=== PATIENT | female | born 1985 | race African-American/Black ===

== ENCOUNTER 2017-09-30 14:34 | Emergency (ER) | payer OTHER, SELFPAY ==
[2017-09-30] MEDS ORDERED: Fentanyl 100 MCG/2 ML VIAL ONE (15:57)
[2017-09-30] MEDS ORDERED: Ondansetron HCl/PF 4 MG/2 ML Vial ONE (15:58)
--- NOTE | 2017-09-30 16:00 | RAD ---
CHEST ONE VIEW 09/30/17 HISTORY: Pain. COMPARISON: None. FINDINGS: The lungs are without focal air space consolidation, pneumothorax or effusion. The cardiac silhouette and mediastinal contours are within normal limits. No acute osseous abnormality. IMPRESSION: No acute intrathoracic abnormality. POS: [facility]
[2017-09-30 16:07] LABS: #Basophils 0.1 thou/uL (0.0-0.2); #Eosinphils 0.3 thou/uL (0.0-0.7); #Monocytes 0.5 thou/uL (0.11-0.59); #Neutrophils 6.3 thou/uL (1.40-6.50); %Basophils 0.6 % (0.0-1.0); %Lymphocytes 21.8 % (21.0-51.0); %Monocytes 5.7 % (0.0-10.0); Hematocrit 39.8 % (36.0-47.0); Mean Platelet Volume 7.8 fL (7.4-10.4); Red Blood Cell (RBC) Count 4.58 mill/uL (4.20-5.40); White Blood Cell (WBC) Count 9.1 thou/uL (4.8-10.8)
[2017-09-30 16:20] LABS: Lactic Acid - Sepsis 1.3 mmol/L (0.5-2.2)
--- NOTE | 2017-09-30 16:27 | ULT ---
HISTORY: Bilateral upper abdominal pain. RIGHT UPPER QUADRANT ULTRASOUND: 09/30/17 Multiple longitudinal and transverse images of the right upper quadrant of the abdomen is obtained us ing a multihertz curvilinear transducer. Real time, color flow, and spectral waveform doppler analysi s used to evaluate the right upper quadrant. The liver is unremarkable with no evidence of hepatic parenchymal masses or lesions. No evidence of i ntrahepatic biliary dilatation is seen. Common bile duct is of normal size measuring 2.7 mm. The gall bladder demonstrates no significant evidence of gallbladder wall thickening. Some small echogenic foc i is seen within the gallbladder lumen compatible with small gallstones. No evidence of pericholecyst ic fluid is seen. The pancreas is suboptimally visualized due to overlying bowel gas. The right kidney is unremarkable measuring 9.5 cm from pole to pole. No evidence of hydronephrosis se en. A normal hepatopedal flow is seen in the portal system. IMPRESSION: Cholelithiasis. POS: [facility]
[2017-09-30 16:29] LABS: Troponin I Less than 0.010 ng/mL (< 0.028)
[2017-09-30 16:59] LABS: Bilirubin Negative (Negative); Blood, Urine Negative (Negative); Glucose, Urine (Dipstick) Negative (Negative); Ketone, Urine Negative (Negative); Nitrite Negative (Negative); Protein, Urine (Dipstick) Negative (Neg-Trace)
[2017-09-30 17:29] LABS: ALT (SGPT) 12 U/L (8-55); AST (SGOT) 23 U/L (5-34); Alkaline Phosphatase 88 U/L (40-150); Anion Gap 13 mmol/L (10-20); BUN (Urea Nitrogen) 12 mg/dL (7.0-18.7); Bilirubin, Total 0.5 mg/dL (0.2-1.2); Calc. Creatinine Clearance 0 mL/min (70-130); Calcium 9.5 mg/dL (7.8-10.44); Carbon Dioxide 25 mmol/L (22-29); Chloride 108 mmol/L (98-107); Estimated GFR-MDRD 78; Globulin 3.1 g/dL (2.4-3.5); Protein, Total 7.4 g/dL (6.0-8.3)
== END 2017-09-30 19:35 | disposition home or self-care (01) ==
LOC: ERS 14:34
DX: K80.20 Calculus of gallbladder without cholecystitis without obstruction (principal); J45.909 Unspecified asthma, uncomplicated
CPT/HCPCS: 71010; 76705; 80053; 81003; 82553; 83605; 83690; 84484; 85025; 85379; 93005; 96361; 96374; 96375; J2405; J3010

== ENCOUNTER 2017-11-29 12:57 | Emergency (ER) | payer SELFPAY ==
[2017-11-29] MEDS ORDERED: Ondansetron HCl/PF 4 MG/2 ML Vial ONE (13:46)
[2017-11-29 13:57] LABS: #Basophils 0.1 thou/uL (0.0-0.2); #Eosinphils 0.4 thou/uL (0.0-0.7); #Lymphocytes 2.3 thou/uL (1.20-3.40); #Monocytes 0.5 thou/uL (0.11-0.59); %Basophils 1.3 % (0.0-1.0); %Eosinophils 5.5 % (0.0-10.0); %Lymphocytes 31.1 % (21.0-51.0); %Monocytes 6.8 % (0.0-10.0); %Neutrophils 55.3 % (42.0-75.0); Hemoglobin 12.9 g/dL (12.0-16.0); Mean Corpuscular HGB CONC 33.3 g/dL (32.0-36.0); Mean Corpuscular Hemoglobin 29.2 pg (27.0-31.0); Mean Corpuscular Volume 87.7 fl (81.0-99.0); Mean Platelet Volume 7.8 fL (7.4-10.4); Platelet Count 265 thou/uL (130-400); RBC Distribution Width 12.6 % (11.5-14.5); Red Blood Cell (RBC) Count 4.41 mill/uL (4.20-5.40); White Blood Cell (WBC) Count 7.3 thou/uL (4.8-10.8)
[2017-11-29 13:57] LABS: Bilirubin Negative (Negative); Blood, Urine Negative (Negative); Clarity CLEAR (Clear); Glucose, Urine (Dipstick) Negative (Negative); Leukocyte Small (Negative); Nitrite Negative (Negative); Protein, Urine (Dipstick) Negative (Neg-Trace); Specific Gravity, Urine 1.017 (1.002-1.036); Urobilinogen 0.2 mg/dL (0.2-1.0); pH, Urine 5.5 (5.0-9.0)
[2017-11-29 14:04] LABS: Pregnancy Test - Urine (BHCG) Negative (Negative); Pregu Control Background? CLEAR/WHITE (CLR/WHITE); Pregu Control Bar Appear? YES (CONTROL BAR); Specific Gravity 1.017 (1.002-1.036)
[2017-11-29 14:16] LABS: Bacteria/HPF None Seen HPF (None Seen); Hyaline Casts/LPF 0-3 HYALINE CAST LPF (0-3 Hyaline); RBC/HPF 0-3 HPF (0-3); Squamous Epithelial 0-3 HPF (0-3); WBC/HPF 0-3 HPF (0-3)
[2017-11-29 14:20] LABS: ALT (SGPT) Less than 7 U/L (8-55); AST (SGOT) 14 U/L (5-34); Alkaline Phosphatase 76 U/L (40-150); Anion Gap 12 mmol/L (10-20); BUN (Urea Nitrogen) 11 mg/dL (7.0-18.7); Bilirubin, Total 0.3 mg/dL (0.2-1.2); Calc. Creatinine Clearance 0 mL/min (70-130); Calcium 8.7 mg/dL (7.8-10.44); Carbon Dioxide 22 mmol/L (22-29); Chloride 105 mmol/L (98-107); Estimated GFR-MDRD 86; Globulin 3.2 g/dL (2.4-3.5); Glucose 87 mg/dL (70-105); Lipase 53 U/L (8-78); Potassium 3.7 mmol/L (3.5-5.1); Protein, Total 7.2 g/dL (6.0-8.3); Sodium 135 mmol/L (136-145)
--- NOTE | 2017-11-29 15:04 | ULT ---
RIGHT UPPER QUADRANT ABDOMINAL ULTRASOUND: History: Right upper quadrant abdominal pain. Patient was diagnosed with cholelithiasis two months ag o. Technique: Multiplanar grayscale and color doppler images were obtained in a right upper quadrant abd ominal ultrasound. FINDINGS: The liver is normal in echogenicity without focal lesions or intrahepatic ductal dilatation. The gall bladder contains small shadowing stones without gallbladder wall thickening or pericholecystic fluid. The common bile duct is normal, measuring 3 mm. Visualized portions of the pancreas are unremarkable. The right kidney is normal in echogenicity with out focal lesion and measures 8.7 cm in length. IMPRESSION: Cholelithiasis without evidence of acute cholecystitis. POS: [facility]
== END 2017-11-29 15:36 | disposition home or self-care (01) ==
LOC: ERS 12:57
DX: K80.20 Calculus of gallbladder without cholecystitis without obstruction (principal); J45.909 Unspecified asthma, uncomplicated
CPT/HCPCS: 36415; 76705; 80053; 81003; 81015; 81025; 83690; 85025; 96374; 96375; J2270; J2405

== ENCOUNTER 2018-02-16 13:53 | Emergency (ER) | payer SELFPAY ==
--- NOTE | 2018-02-16 15:20 | RAD ---
2 VIEWS CHEST: Date: 02/16/18 HISTORY: Chest pain. Shortness of breath. COMPARISON: None. FINDINGS: Normal cardiac silhouette. Lungs and pleural spaces are clear. No pneumothorax or osseous abnormaliti es. IMPRESSION: No acute cardiopulmonary process. POS: [facility]
[2018-02-16] MEDS ORDERED: Albuterol Sulfate 2.5 mg/3 ml Neb ONE (15:26)
[2018-02-16 16:22] LABS: Bilirubin Negative (Negative); Blood, Urine Negative (Negative); Clarity CLOUDY (Clear); Glucose, Urine (Dipstick) Negative (Negative); Leukocyte Large (Negative); Nitrite Negative (Negative); Protein, Urine (Dipstick) Negative (Neg-Trace); Specific Gravity, Urine 1.025 (1.002-1.036)
[2018-02-16 16:24] LABS: Hyaline Casts/LPF 7-10 HYALINE CAST LPF (0-3 Hyaline); Pathc Cast-AUWi Flag 2.47 (0-2.49); WBC/HPF 21-50 HPF (0-3)
[2018-02-16 16:25] LABS: Pregnancy Test - Urine (BHCG) POSITIVE (Negative); Pregu Control Background? CLEAR/WHITE (CLR/WHITE); Pregu Control Bar Appear? YES (CONTROL BAR); Specific Gravity 1.025 (1.002-1.036)
[2018-02-16 16:32] LABS: Bacteria/HPF 3+ HPF (None Seen); RBC/HPF 0-3 HPF (0-3)
== END 2018-02-16 17:52 | disposition home or self-care (01) ==
LOC: ERS 13:53
DX: O99.89 Other specified diseases and conditions complicating pregnancy, childbirth and the puerperium (principal); R07.9 Chest pain, unspecified; O99.511 Diseases of the respiratory system complicating pregnancy, first trimester; J45.909 Unspecified asthma, uncomplicated; O99.351 Diseases of the nervous system complicating pregnancy, first trimester; G43.909 Migraine, unspecified, not intractable, without status migrainosus
CPT/HCPCS: 71046; 81003; 81015; 81025; 93005; 94640; J7611

== ENCOUNTER 2018-06-19 09:54 | Day surgery (SDC) | payer MEDICAID, OTHER ==
--- NOTE | 2018-06-19 11:13 | PDOC.LDHP ---
Labor and Delivery H&P Chief complaint: other (syncope) HPI: 33 y/o @ 22.0 WGA presents due to syncope. She reports that she was at school sitting in the desk and she started to feel hot all over. She took her pulse and it was 85. She then started feeling palpitations, lightheadedness and tried to lift her head up, but her eyes went black. She then laid her head on the desk. She remembers the teacher coming over , but doesn't remember anything else until she was in the ambulance. She reports some associated nausea, but no vomiting. She had no incontinence and no one reported seizure-like activity. She reports that her lightheadedness and nausea have resolved. She has had about 1-2 bottles of water today. She reports a history of frequent pre-syncopal episodes, and Dr. Monge referred her to a systems integration advisor last week, but she has not received a call from them to make an appt yet. She reports that these episodes are sometimes when sitting or lying down, not always when standing. She denies any ctx, LOF, and reports movement. Current gestational age (weeks): 22 (22w0d) Grav: 9 Para: 8 () OB History Details: stillbirth at 26 weeks, living child at 32 weeks. Otherwise all term 's. Current complications: none Abnormal US findings: No Past Medical History: Asthma, but has not required treatment in the past 12 years Current medications: pre-keeley vitamins Previous surgical history: none Allergies/Adverse Reactions: Allergies Allergy/AdvReac Type Severity Reaction Status Date / Time cefaclor [From [facility]] Allergy Verified 06/19/18 10:34 Social history: none - Physical Exam Abnormal vital signs: BP 95/50 General: NAD, resting Heart: RRR Lungs: CTAB Abdomen: gravid Extremeties: no edema FHT: category 1, variability present [place] contractions every: none - OB Labs Blood type: unknown RH: unknown Antibody Screen: unknown HIV: unknown RPR: unknown HEPSAg: unknown - Assessment Syncope: 33 y/o F presents due to a syncopal episode. She has had frequent episodes of pre-syncope and was referred to cardiology last week. - Plan -: -EKG -Orally hydrate -Orthostatic vital signs -Check TSH and BMP -Will have pt make an appt with systems integration advisor that she was referred to. If all of this returns normal, will d/c with cardiology f/u.
[2018-06-19 11:30] VITALS: BP 90/53; TEMP 98.9
--- NOTE | 2018-06-19 11:49 | PDOC.EVN ---
Event Note - Event Note Event Note: Orthostatic vital signs reviewed and were negative for orthostatic hypotension. EKG reviewed, showed NSR with sinus arrhythmia, rate of 72 BPM. Labs still pending at this time. Pt is orally hydrating.
[2018-06-19 11:53] LABS: Anion Gap 12 mmol/L (10-20); BUN (Urea Nitrogen) 6 mg/dL (7.0-18.7); Calc. Creatinine Clearance 0 mL/min (70-130); Calcium 8.7 mg/dL (7.8-10.44); Carbon Dioxide 20 mmol/L (22-29); Chloride 104 mmol/L (98-107); Estimated GFR-MDRD Greater than 90; Glucose 89 mg/dL (70-105); Potassium 3.4 mmol/L (3.5-5.1); Sodium 133 mmol/L (136-145)
--- NOTE | 2018-06-19 12:16 | PDOC.EVN ---
Event Note - Event Note Event Note: TSH came back low at 0.013. Added on a free T4. K 3.4, which is mildly hypokalemic and Na 133.
--- NOTE | 2018-06-19 13:36 | PDOC.EVN ---
Event Note - Event Note Event Note: Free T4 came back WNL. 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 Monge
--- NOTE | 2018-06-20 17:42 | EKG ---
Test Reason : Blood Pressure : / mmHG Vent. Rate : 072 BPM Atrial Rate : 072 BPM P-R Int : 130 ms QRS Dur : 082 ms QT Int : 402 ms P-R-T Axes : 038 078 039 degrees QTc Int : 440 ms Normal sinus rhythm with sinus arrhythmia Normal ECG When compared with ECG of 16-FEB-2018 15:00, No significant change was found Confirmed by DR. Kiley DRAKE ([id number]) on 06/20/2018 5:42:02 PM Referred By: BRYSON Confirmed By:DR. Kiley DRAKE
== END 2018-06-19 13:54 | disposition home or self-care (01) ==
LOC: L&D/OP 09:54
PROVIDERS: ATTEND Family Medicine
DX: O99.89 Other specified diseases and conditions complicating pregnancy, childbirth and the puerperium (principal); R55 Syncope and collapse; Z3A.22 22 weeks gestation of pregnancy; Z79.899 Other long term (current) drug therapy; Z88.1 Allergy status to other antibiotic agents
CPT/HCPCS: 36415; 80048; 84439; 84443; 93005; 93010; 99281

== ENCOUNTER 2018-07-22 22:09 | Day surgery (SDC) | payer OTHER ==
[2018-07-22 22:46] VITALS: BP 109/57; TEMP 99; BMI 27.6
--- NOTE | 2018-07-22 23:42 | PDOC.FPROB ---
FMR OB H&P: HPI - History of Present Illness Chief Complaint: Low back pain Indentification: 33 year old History of Present Illness: 33 year old at 27.1 wks by LMP/1T sono with JARROD of 10/20/2018 that presents with low back pain with onset this AM upon waking. Patient states it has been present all day, although it does wax and wane in intensity. She has tried tylenol and fluid hydration thinking this may be related to [place] contractions without any relief of symptoms. She states it is more of a dull pain. She is concerned about PTL due to past history of PTL. She denies any dysuria, flank pain, fever, chills, headaches, vaginal bleeding, vaginal discharge, or LoF. She endorses good movement. Primary Care Physician: Saleem FMR OB H&P: Current - Care : 10 Para: [id number] Gestational age: 27.1 wks Due date: 10/20/2017 Dating Criteria: LMP/1T sono FMR OB H&P: History - Past Medical History PMH: Asthma Migraine SKELTON's - OB History OB History: History of still at 25 wks (presented with PPROM) History of PTD at 25 wks (presented with contractions) - Surgical History Sx History: None - Social History Social History: Denies tobacco, alcohol, or drug use. FMR OB H&P: Medications - Current Home Medications: Medication Instructions Recorded Confirmed Type Pnv No.95/Ferrous Fum/Folic AC 1 tab PO DAILY 06/09/15 07/22/18 History [ Tablet] Acetaminophen W/ Codeine 1 tab PO Q4H PRN #0 tab 08/12/15 07/22/18 Rx [Acetaminophen/Codeine #3] Allergies/Adverse Reactions: Allergies Allergy/AdvReac Type Severity Reaction Status Date / Time cefaclor [From [facility]] Allergy Verified 07/22/18 22:38 FMR OB H&P: ROS - Review of Systems General: denies: fever/chills, weight/appetite/sleep changes, fatigue Eyes: denies: vision changes ENT: denies: nasal congestion, rhinorrhea, sore throat Cardiovascular: denies: chest pain, palpitation, edema Respiratory: denies: cough, congestion, shortness of breath Gastrointestinal: reports: abdominal pain. denies: nausea, vomiting, diarrhea Genitourinary (Female): reports: polyuria, contractions. denies: dysuria, hematuria, vaginal discharge, vaginal pain, vaginal bleeding Musculoskeletal: denies: pain Neurologic: denies: seizures, weakness Integumentary: denies: itching, rash Hematologic/Lymphatic: denies: prolonged or excessive bleeding Psychological: denies: depression, anxiety FMR OB H&P: Vital Signs - Maternal Vital signs: Vital Signs - First Documented Temp Pulse Resp BP 99.0 F 84 18 109/57 L 07/22/18 22:36 07/22/18 22:36 07/22/18 22:36 07/22/18 22:36 - Heart Tones Baseline: 130 Variability: moderate Acceleration: present Deceleration: absent Category: category 1 [place] contractions every: Irritability FMR OB H&P: Physical Exam - Physical Exam General: NAD, awake, alert and oriented HEENT: normocephalic and atraumatic, MMM, grossly normal hearing, normal nasal mucosa Heart: RRR, no murmurs/rubs/gallops General: no respiratory distress Abdomen: soft, gravid, non-tender Musculoskeletal: pulses present Neurological: no focal deficit Skin: no rash, capillary refill <2 seconds Lymphatic: no unusual bruising or bleeding Psychiatric: intact recent and remote memory, good judgement and insight, normal mood and affect - Pelvic Exam Vulva: no masses, no lesions, no discharge, no blood SVE: closed/thick/high FMR OB H&P: A/P - Problem List (1) Back pain affecting Status: Acute Code(s): O99.89 - OTH DISEASES AND CONDITIONS COMPL PREG/ CHLDBRTH; M54.9 - DORSALGIA, UNSPECIFIED Qualifiers: Trimester: second trimester Qualified Code(s): O99.89 - Other specified diseases and conditions complicating , childbirth and the puerperium; M54.9 - Dorsalgia, unspecified (2) Status: Acute Qualifiers: Weeks of gestation: 27 weeks Qualified Code(s): Z3A.27 - 27 weeks gestation of Assessment and Plan: 33 year old at 27.1 wks by LMP/1T sono presents with low back pain 1. Low back pain - Likely related to [place] contractions vs. muscle strain - UA negative - Tylenol PRN; 1000 mg given prior to d/c - Encouraged PO hydration - Cervical check: closed/thick/high - PTL precautions given prior to d/c - Pt advised to follow with Dr. Monge on Tuesday as scheduled 2. sIUP - see plan as above Discussion: Date/Time: 07/22/18 5321 This H&P was discussed with Dr. Ramsey who agrees with the above documentation and plan. Signature: Sharifa Batista DO PGY-2 Attending Addendum - Attending Addendum Date/Time: 07/23/18 0033 I personally evaluated the patient and discussed the management with Dr. Kong. I agree with the History, Examination, Assessment and Plan documented above.
[2018-07-23 00:06] LABS: Bilirubin Negative (Negative); Blood, Urine Negative (Negative); Clarity CLEAR (Clear); Glucose, Urine (Dipstick) Negative (Negative); Leukocyte Negative (Negative); Nitrite Negative (Negative); Protein, Urine (Dipstick) Negative (Neg-Trace); Specific Gravity, Urine 1.025 (1.002-1.036)
[2018-07-23] MEDS ORDERED: Acetaminophen 500 MG TAB PO SCH (00:30)
== END 2018-07-23 00:29 | disposition home or self-care (01) ==
LOC: L&D/OP 22:09
PROVIDERS: ATTEND Family Medicine
DX: O99.89 Other specified diseases and conditions complicating pregnancy, childbirth and the puerperium (principal); M54.5 Low back pain; Z3A.27 27 weeks gestation of pregnancy; Z88.8 Allergy status to other drugs, medicaments and biological substances
CPT/HCPCS: 81003; 99283

== ENCOUNTER 2018-07-25 10:40 | Outpatient (CLI) | payer OTHER ==
--- NOTE | 2018-07-25 12:47 | ULT ---
OB ULTRASOUND: INDICATIONS: Evaluation of size and dates. FINDINGS: There is a live intrauterine gestation with cardiac activity, documented at 129 beats per minut e. The placenta is located anteriorly, and the fetus is in a vertex lie. No evidence of placenta pr evia. Evaluation of anatomy reveals a normal sonographic appearance of the cranium, spin e, four chamber heart, gastric bubble, kidneys, cord insertion site, and urinary bladder. Amniotic f luid volume is subjectively diminished in volume with a low JANE, also measured at 9.4 cm. Provided c linical gestational age is 27 weeks 3 days, and on the basis of sonographic imaging, the estimated fe carlo age is 27 weeks 0 days. Estimated weight is 1057 g. Biparietal diameter corresponds to 26 weeks 0 days, head circumference, 26 weeks 5 days, abdominal ci rcumference 27 weeks 3 days, and femoral length 27 weeks 5 days. On the basis of sonographic imaging, the estimated date of delivery is 10/24/2018. IMPRESSION: 1. Single live intrauterine gestation, as above. 2. There is a subjectively diminished volume of amniotic fluid and, as well, there is a correlative reduced value of the amniotic fluid index of 9.4 cm. Recommend clinical correlation in this regard. Imaging followup may also prove useful for continued assessment. Findings called to Dr. Monge at 1140 hours, 07/25/18. POS: [facility]
== END 2018-07-25 10:41 | disposition home or self-care (01) ==
LOC: BICULT 10:40
PROVIDERS: ATTEND Family Medicine
DX: O09.212 Supervision of pregnancy with history of pre-term labor, second trimester (principal)
CPT/HCPCS: 76805

== ENCOUNTER 2018-09-05 22:57 | Inpatient (IN) | payer OTHER ==
[2018-09-05 23:58] VITALS: BMI 27.9
[2018-09-06 00:32] LABS: Bilirubin Negative (Negative); Blood, Urine Negative (Negative); Clarity CLEAR (Clear); Glucose, Urine (Dipstick) Negative (Negative); Leukocyte Negative (Negative); Nitrite Negative (Negative); Protein, Urine (Dipstick) Negative (Neg-Trace); Specific Gravity, Urine 1.015 (1.002-1.036)
[2018-09-06 00:36] LABS: #Basophils 0.1 thou/uL (0.0-0.2); #Eosinphils 0.2 thou/uL (0.0-0.7); #Lymphocytes 2.1 thou/uL (1.20-3.40); #Monocytes 0.8 thou/uL (0.11-0.59); #Neutrophils 3.9 thou/uL (1.40-6.50); %Basophils 0.8 % (0.0-1.0); %Eosinophils 2.4 % (0.0-10.0); %Lymphocytes 30.4 % (21.0-51.0); %Monocytes 11.7 % (0.0-10.0); %Neutrophils 54.7 % (42.0-75.0); Hemoglobin 10.7 g/dL (12.0-16.0); Mean Corpuscular HGB CONC 35.1 g/dL (32.0-36.0); Mean Corpuscular Hemoglobin 29.2 pg (27.0-31.0); Mean Corpuscular Volume 83.3 fL (78.0-98.0); Mean Platelet Volume 8.2 fL (7.4-10.4); Platelet Count 162 thou/uL (130-400); RBC Distribution Width 13.5 % (11.5-14.5); Red Blood Cell (RBC) Count 3.67 mill/uL (4.20-5.40)
[2018-09-06] MEDS ORDERED: Butorphanol Tartrate 1 MG/ML VIAL SLOW IVP PRN (01:11)
[2018-09-06] MEDS ORDERED: Lactated Ringer's 500 ML IV SCH (01:30)
[2018-09-06] MEDS ORDERED: NIFEdipine 10 MG CAP PO SCH (01:30)
[2018-09-06] MEDS: Lactated Ringer's 1,000 ML IV SCH ×3 (01:35→12:21)
[2018-09-06] MEDS: Betamet Acet/Betamet Na Ph 30 MG/5 ML VIAL IM SCH (01:48)
[2018-09-06] MEDS: NIFEdipine 10 MG CAP PO SCH ×2 (10:13→21:57)
[2018-09-06] MEDS ORDERED: Ondansetron PF 4 MG/2 ML Vial IVP PRN (14:33)
[2018-09-06 21:48] VITALS: BP 92/46; TEMP 98.8
[2018-09-07] MEDS: Betamet Acet/Betamet Na Ph 30 MG/5 ML VIAL IM SCH (01:52)
[2018-09-07] MEDS: Lactated Ringer's 1,000 ML IV SCH (02:27)
[2018-09-07] MEDS: NIFEdipine 10 MG CAP PO SCH (10:12)
== END 2018-09-07 12:15 | disposition home health service (06) | DRG 833 ==
LOC: L&D/OP 22:57 → L&D 09-06 03:37
PROVIDERS: ADMIT Obstetrics & Gynecology; ATTEND Obstetrics & Gynecology
DX: O60.03 Preterm labor without delivery, third trimester (principal); Z3A.33 33 weeks gestation of pregnancy
CPT/HCPCS: 36415; 81003; 85025; 99285; J0595; J0702

== ENCOUNTER 2018-09-17 11:33 | Day surgery (SDC) | payer OTHER ==
[2018-09-17 12:03] VITALS: BMI 27.8
--- NOTE | 2018-09-18 02:09 | SS ---
DATE OF ADMISSION: 09/17/2018 DATE OF DISCHARGE: 09/17/2018 LABOR AND DELIVERY TRIAGE NOTE REGULAR PHYSICIAN: Pro Monge MD EVALUATING PHYSICIAN: David Ramsey MD CHIEF COMPLAINT: Brought in by ambulance. HISTORY OF PRESENT ILLNESS: Ms. Tinoco is a 33-year-old white G10, P8 with an estimated date of confinement of 10/21/2017, who presents to the hospital by ambulance reporting an episode of dizziness at home. She denies history of seizures. She also denies contractions, vaginal bleeding, or rupture of membranes. Her care had been with Dr. Monge here in [facility]. She reports that it was uncomplicated. PAST OBSTETRICAL HISTORY: Includes 8 vaginal deliveries at term and a stillborn also delivered vaginally at 25 weeks. PAST MEDICAL HISTORY: None. PAST SURGICAL HISTORY: None. CURRENT MEDICATIONS: vitamins. ALLERGIES: CECLOR WHICH GIVES HER HIVES. SOCIAL HISTORY: She denies tobacco, alcohol, or drug use. FAMILY HISTORY: Unremarkable. REVIEW OF SYSTEMS: Denies nausea, vomiting, fever, chills, rupture of membranes , or vaginal bleeding. PHYSICAL EXAMINATION: VITAL SIGNS: In triage, blood pressure is 95/51, pulse 97, she is afebrile. GENERAL: She is in no apparent distress. She is awake and oriented. ABDOMEN: Soft, nontender, and gravid. PELVIC: Deferred. heart tones are stable with a good [id number] variability, they are reassuring. No uterine contractions are seen. LABORATORY DATA: CBC, chem-21, and urinalysis were ordered. Unfortunately, she left against medical advice before these laboratories could be completed. ASSESSMENT: 1. 35-week intrauterine . 2. History of dizziness at home. 3. Left against medical advice prior to workup. PLAN: As the patient has signed the AMA form and states she will follow up with Dr. Monge at her next appointment. Job ID: [id number] MTDD
== END 2018-09-17 12:24 | disposition left against medical advice (07) ==
LOC: L&D/OP 11:33
DX: O99.89 Other specified diseases and conditions complicating pregnancy, childbirth and the puerperium (principal); R42 Dizziness and giddiness; Z53.21 Procedure and treatment not carried out due to patient leaving prior to being seen by health care provider; Z3A.35 35 weeks gestation of pregnancy; Z79.899 Other long term (current) drug therapy; Z88.1 Allergy status to other antibiotic agents
CPT/HCPCS: 96360; 99282

== ENCOUNTER 2018-09-21 08:00 | Day surgery (SDC) | payer OTHER ==
[2018-09-21 09:23] VITALS: BMI 26.2
--- NOTE | 2018-09-21 15:21 | PRG ---
DATE OF SERVICE: 09/21/2018 OB ER ENCOUNTER: PRIMARY CONCHE LOADER AND UNLOADER: Dr. Pro Monge. CHIEF COMPLAINT: Abdominal pain. HISTORY OF PRESENT ILLNESS: The patient is a 33-year-old G10, P8 female with an intrauterine at 35 weeks and 5 days, who is presenting to Labor and Delivery today with onset of uterine contractions. The patient reports that last night, they became more intense and persisted throughout the night and upon arriving here to Labor and Delivery, she does report that the contractions seem to be getting less intense and less frequent. The patient denies any recent illness, fever, fall, headache, chest pain, shortness of breath, nausea, vomiting, diarrhea, or constipation. She denies hip problems, knee problems, or muscle weakness. Denies vaginal bleeding or leakage of fluid. Denies urinary urgency. She denies any recent intercourse. The patient does report that she has received steroids at a prior admission for concerns of labor, which was given on 09/06/2018 and 09/07/2018. PAST MEDICAL HISTORY: Negative. PAST SURGICAL HISTORY: Negative. OBSTETRIC HISTORY: The patient has 8 vaginal deliveries at term and a stillborn, delivered at 28 and 5 weeks. CURRENT MEDICATIONS: Include vitamins. ALLERGIES: CECLOR, WHICH GIVES HER HIVES. SOCIAL HISTORY: Denies drug, alcohol, or tobacco use. OBSTETRIC LABORATORY DATA: OB labs are unavailable at the time of dictation. REVIEW OF SYSTEMS: Per HPI. The patient does report that she has persistent intermittent dizziness and lightheadedness, which has been an ongoing thing with this and is being evaluated by Dr. Monge. PHYSICAL EXAMINATION: VITAL SIGNS: Blood pressure 110/68, heart rate of 101, respiratory rate 18, and temperature 98.2. GENERAL: She appears to be in no acute distress. She is alert and oriented. Cooperative and pleasant to interact with. HEAD: Normocephalic and atraumatic. LUNGS: Clear to auscultation bilaterally. HEART: Regular rate and rhythm. ABDOMEN: Soft, gravid, nontender to palpation. EXTREMITIES: Nontender and nonedematous. : She has a cervical exam of 2 cm dilated, 20% effaced, -2 station, which is unchanged after 3 hours. heart tracing performed for abdominal pain and , baseline is noted to be in the 120s with moderate long-term variability, positive 15 x 15 accelerations. Tocometer shows contraction, irregular and infrequent being as much as 20 minutes apart. ASSESSMENT AND PLAN: The patient is a 33-year-old grand multiparous female with an intrauterine at 35 weeks and 5 days with contractions, but no evidence of labor. The patient is status post steroid administration a couple of weeks ago. She has been given labor precautions and been discharged home with instructions to follow up with her primary OB as scheduled. Fetus has a reactive NST and category 1 tracing. Job ID: [id number]
== END 2018-09-21 12:35 | disposition home or self-care (01) ==
LOC: L&D/OP 08:00
PROVIDERS: ATTEND Family Medicine
DX: O47.03 False labor before 37 completed weeks of gestation, third trimester (principal); Z3A.35 35 weeks gestation of pregnancy; Z79.899 Other long term (current) drug therapy; Z88.1 Allergy status to other antibiotic agents
CPT/HCPCS: 90471; 90686; 99283; G0008

== ENCOUNTER 2018-10-01 10:57 | Day surgery (SDC) | payer OTHER ==
[2018-10-01 11:33] VITALS: BMI 22.1
--- NOTE | 2018-10-01 12:14 | PDOC.FPROB ---
FMR OB H&P: HPI - History of Present Illness Chief Complaint: Contractions Indentification: 33 year old History of Present Illness: 33 year old at 37.1 wks presents with contractions since 19:00 last night. She states the contractions are every 3-4 minutes and rated as a 6/10. She denies LoF, vaginal bleeding, or vaginal discharge. Patient endorses good movement. 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: None - Surgical History Sx History: Denies - Social History Social History: Denies alcohol, drug, or tobacco use - Family History Family History: Insignificant FMR OB H&P: Medications - Current Home Medications: Medication Instructions Recorded Confirmed Type Pnv No.95/Ferrous Fum/Folic AC 1 tab PO DAILY 06/09/15 10/01/18 History [ Tablet] Allergies/Adverse Reactions: Allergies Allergy/AdvReac Type Severity Reaction Status Date / Time cefaclor [From [facility]] Allergy Intermediate Severe Verified 10/01/18 11:29 Hives FMR OB H&P: ROS - Review of Systems General: denies: fever/chills, weight/appetite/sleep changes Eyes: denies: double vision ENT: denies: nasal congestion, rhinorrhea, sore throat Cardiovascular: denies: chest pain, edema Respiratory: denies: cough, congestion, shortness of breath Gastrointestinal: denies: nausea, vomiting Genitourinary (Female): reports: polyuria, contractions, vaginal pressure. denies: dysuria, vaginal discharge, vaginal bleeding Musculoskeletal: denies: pain, stiffness Neurologic: denies: numbness, seizures Integumentary: denies: itching, rash Hematologic/Lymphatic: denies: prolonged or excessive bleeding Psychological: denies: depression, anxiety FMR OB H&P: Vital Signs - Maternal Vital signs: BP wnl Pulse wnl - Heart Tones Baseline: 130 Variability: moderate Acceleration: present Deceleration: absent Category: category 1 [place] contractions every: Irregular FMR OB H&P: Physical Exam - Physical Exam General: NAD, awake, alert and oriented HEENT: MMM, grossly normal vision, grossly normal hearing Neck: supple Heart: RRR, pulses present, no edema General: no respiratory distress, good air movement Abdomen: soft, gravid, non-tender Musculoskeletal: pulses present, FROM in all four extremities Neurological: no tremor, no focal deficit Skin: no rash, capillary refill <2 seconds Lymphatic: no unusual bruising or bleeding, no purpura Psychiatric: intact recent and remote memory, good judgement and insight, normal mood and affect - Pelvic Exam SVE: 3 at appx 12:00 FMR OB H&P: A/P - Problem List (1) Term Current Visit: Yes Status: Acute Code(s): Z34.80 - ENCOUNTER FOR SUPRVSN OF NORMAL , UNSP TRIMESTER (2) Grand multipara Current Visit: Yes Status: Acute Code(s): Z64.1 - PROBLEMS RELATED TO MULTIPARITY (3) Uterine contractions Current Visit: Yes Status: Acute Code(s): SZG4786 - (4) Asthma Current Visit: Yes Status: Acute Code(s): J45.909 - UNSPECIFIED ASTHMA, UNCOMPLICATED Disposition: 33 year old at 37.1 wks presents with contractions 1. TIUP - rule out labor - cervical check at 12:00 was 3 (unchanged from 09/21) - recheck in several hours; patient is G10, but she does only live 5 minutes away. - if no cervical change in next several hours, will d/c home with labor precautions - cat 1 strip 2. Asthma - well controlled 3. Grand multip - PPH precautions Dispo: Stable. D/c home if no cervical change in next several hours. If cervical change noted, will admit to L&D for expectant management. Discussion: Date/Time: 10/01/18 1151 This H&P was discussed with Dr. Peralta who agrees with the above documentation and plan. Signature: Sharifa Batista, DO PGY-2
== END 2018-10-01 14:43 | disposition home or self-care (01) ==
LOC: L&D/OP 10:57
PROVIDERS: ATTEND Family Medicine
DX: O47.1 False labor at or after 37 completed weeks of gestation (principal); O99.513 Diseases of the respiratory system complicating pregnancy, third trimester; J45.909 Unspecified asthma, uncomplicated; Z79.899 Other long term (current) drug therapy; Z88.1 Allergy status to other antibiotic agents; Z3A.37 37 weeks gestation of pregnancy
CPT/HCPCS: 99283

== ENCOUNTER 2018-10-06 22:15 | Inpatient (IN) | payer OTHER ==
[2018-10-06 22:56] VITALS: BMI 27.9
[2018-10-06] MEDS ORDERED: Butorphanol Tartrate 1 MG/ML VIAL IM SCH (23:45)
[2018-10-07] MEDS ORDERED: Fentanyl 4 mcg/Bup 0.1% Cadd 100 ML ONE (00:51)
[2018-10-07] MEDS ORDERED: Lidocaine 1.5%/Epinephrine 1:200,000 5 ML AMPUL IJ ONE (00:57)
[2018-10-07] MEDS ORDERED: Lidocaine 1% (PF) 30 ML VIAL ONE (01:10)
[2018-10-07] MEDS ORDERED: NS / Oxytocin 40 units/1000ml 1,000 ML ONE (01:10)
[2018-10-07 01:15] LABS: Hemoglobin 11.6 g/dL (12.0-16.0); Mean Corpuscular HGB CONC 34.1 g/dL (32.0-36.0); Mean Corpuscular Hemoglobin 27.7 pg (27.0-31.0); Mean Corpuscular Volume 81.1 fL (78.0-98.0); Mean Platelet Volume 8.4 fL (7.4-10.4); Platelet Count 164 thou/uL (130-400); RBC Distribution Width 13.6 % (11.5-14.5); White Blood Cell (WBC) Count 8.5 thou/uL (4.8-10.8)
[2018-10-07] MEDS ORDERED: Acetaminophen 500 MG TAB PO PRN (01:17)
[2018-10-07] MEDS ORDERED: Butorphanol Tartrate 1 MG/ML VIAL SLOW IVP PRN (01:17)
[2018-10-07] MEDS ORDERED: Lactated Ringer's 1,000 ML IV SCH (01:17)
[2018-10-07] MEDS ORDERED: Promethazine HCl 25 MG/ML VIAL IM PRN ×2 (01:17→01:48)
[2018-10-07] MEDS ORDERED: Ondansetron PF 4 MG/2 ML Vial IVP PRN ×3 (01:17→04:29)
[2018-10-07] MEDS ORDERED: Lidocaine 1% (PF) 30 ML VIAL SC PRN (01:30)
[2018-10-07] MEDS ORDERED: Ibuprofen 800 MG TAB PO PRN (01:30)
[2018-10-07] MEDS ORDERED: Methylergonovine 0.2 MG/ML VIAL IM PRN (01:30)
[2018-10-07] MEDS ORDERED: NS / Oxytocin 40 units/1000ml 1,000 ML IV SCH ×2 (01:30→04:29)
[2018-10-07] MEDS ORDERED: NS w/ Oxytocin 10 units 500 ML IV SCH ×2 (01:30)
[2018-10-07] MEDS ORDERED: Misoprostol 200 MCG TAB RC PRN (01:30)
[2018-10-07] MEDS ORDERED: HYDROcodone/Acetaminophen 5/325 mg Tablet PO PRN ×3 (01:30→04:29)
[2018-10-07] MEDS ORDERED: Carboprost 250 MCG/ML AMP IM PRN (01:30)
[2018-10-07] MEDS ORDERED: Diphenoxylate HCl/Atropine Tablet PO PRN ×2 (01:30)
[2018-10-07] MEDS ORDERED: Eucerin (Mineral Oil/Petrolatum,White) 30 gm Jar TOP PRN (01:48)
[2018-10-07] MEDS ORDERED: Lactated Ringer's 500 ML IV PRN (01:48)
[2018-10-07] MEDS ORDERED: ePHEDrine/0.9% NaCl/PF SYRINGE 50 mg/10 ml SLOW IVP PRN (01:48)
[2018-10-07] MEDS ORDERED: diphenhydrAMINE 50 MG/ML VIAL IVP PRN (01:48)
[2018-10-07] MEDS ORDERED: Acetaminophen 325 MG TAB PO PRN (01:48)
[2018-10-07] MEDS ORDERED: Naloxone HCl 0.4 mg/ml Vial IVP PRN ×2 (01:48)
[2018-10-07 01:50] LABS: Hep B Surf Ag Non-Reactive S/CO (NonReactive)
[2018-10-07] MEDS ORDERED: Communication Order-Pharmacy FS SCH (02:00)
[2018-10-07] MEDS ORDERED: Fentanyl 4 mcg/Bupivacaine 0.1% Cassette 100 ML EPIDURAL SCH (02:00)
[2018-10-07 03:56] LABS: Syphilis Antibody Nonreactive (Nonreactive); Syphilis Antibody Index 0.04 S/CO (<1.00 Non-Reactive)
[2018-10-07] MEDS ORDERED: Lanolin Ointment 7 GM TUBE TOP PRN (04:29)
[2018-10-07] MEDS ORDERED: Bisacodyl 10 MG SUPP PR PRN (04:29)
[2018-10-07] MEDS ORDERED: Milk Of Magnesia 30 ML UDCUP PO PRN (04:29)
[2018-10-07] MEDS ORDERED: diphenhydrAMINE 25 MG CAP PO PRN (04:29)
[2018-10-07] MEDS: Prenatal Vitamin 1 TAB PO SCH (08:24)
[2018-10-07] MEDS: Ibuprofen 800 MG TAB PO SCH ×3 (08:25→21:49)
[2018-10-07] MEDS: Docusate Calcium (SURFAK) 240 MG CAP PO SCH ×2 (08:25→21:49)
[2018-10-07] MEDS: Ferrous Sulfate 325 MG TAB PO SCH ×2 (08:26→17:07)
[2018-10-07] MEDS ORDERED: Bupivacaine HCl 0.5%/Epinephrine 1:200,000/PF 30 ml Vial ONE (13:09)
[2018-10-07] MEDS: HYDROcodone/Acetaminophen 5/325 mg Tablet PO PRN ×2 (14:23→20:00)
[2018-10-08] MEDS: Ibuprofen 800 MG TAB PO SCH ×2 (06:16→14:09)
[2018-10-08 07:32] LABS: Hemoglobin 10.4 g/dL (12.0-16.0); Mean Corpuscular HGB CONC 33.2 g/dL (32.0-36.0); Mean Corpuscular Hemoglobin 27.2 pg (27.0-31.0); Mean Corpuscular Volume 82.1 fL (78.0-98.0); Mean Platelet Volume 8.7 fL (7.4-10.4); Platelet Count 180 thou/uL (130-400); RBC Distribution Width 13.7 % (11.5-14.5); Red Blood Cell (RBC) Count 3.83 mill/uL (4.20-5.40); White Blood Cell (WBC) Count 8.2 thou/uL (4.8-10.8)
[2018-10-08 08:29] VITALS: BP 112/64; TEMP 98.9
[2018-10-08] MEDS: Ferrous Sulfate 325 MG TAB PO SCH (09:43)
[2018-10-08] MEDS: HYDROcodone/Acetaminophen 5/325 mg Tablet PO PRN ×2 (09:47→14:09)
[2018-10-08] MEDS: Prenatal Vitamin 1 TAB PO SCH (09:47)
[2018-10-08] MEDS: Docusate Calcium (SURFAK) 240 MG CAP PO SCH (09:47)
== END 2018-10-08 16:30 | disposition home or self-care (01) | DRG 807 ==
LOC: L&D/OP 22:15 → L&D 10-07 01:13 → 3SE 10-07 04:46
PROVIDERS: ADMIT Family Medicine; ATTEND Family Medicine
PROC: 10E0XZZ Delivery of Products of Conception, External Approach (ICD-10-PCS; principal; 2018-10-07)
PROC: 10907ZC Drainage of Amniotic Fluid, Therapeutic from Products of Conception, Via Natural or Artificial Opening (ICD-10-PCS; 2018-10-07)
DX: O62.3 Precipitate labor (principal); Z37.0 Single live birth; O76 Abnormality in fetal heart rate and rhythm complicating labor and delivery; Z3A.38 38 weeks gestation of pregnancy
CPT/HCPCS: 36415; 85027; 86780; 86850; 86900; 86901; 87340; 99285; J0595; J0670; J2001; J3490

== ENCOUNTER 2019-02-28 21:36 | Emergency (ER) | payer OTHER ==
[2019-02-28 22:34] LABS: #Basophils 0.1 thou/uL (0.0-0.2); #Eosinphils 0.3 thou/uL (0.0-0.7); #Lymphocytes 2.6 thou/uL (1.20-3.40); #Monocytes 0.7 thou/uL (0.11-0.59); #Neutrophils 2.6 thou/uL (1.40-6.50); %Basophils 1.4 % (0.0-1.0); %Eosinophils 4.8 % (0.0-10.0); %Lymphocytes 41.2 % (21.0-51.0); %Monocytes 10.8 % (0.0-10.0); %Neutrophils 41.8 % (42.0-75.0); Hemoglobin 13.2 g/dL (12.0-16.0); Mean Corpuscular HGB CONC 32.6 g/dL (32.0-36.0); Mean Platelet Volume 7.6 fL (7.4-10.4); Platelet Count 247 thou/uL (130-400); Red Blood Cell (RBC) Count 4.41 mill/uL (4.20-5.40); White Blood Cell (WBC) Count 6.3 thou/uL (4.8-10.8)
[2019-02-28 22:54] LABS: ALT (SGPT) 10 U/L (8-55); AST (SGOT) 17 U/L (5-34); Albumin 3.8 g/dL (3.5-5.0); Alkaline Phosphatase 71 U/L (40-150); Anion Gap 12 mmol/L (10-20); BUN (Urea Nitrogen) 14 mg/dL (7.0-18.7); Bilirubin, Total 0.4 mg/dL (0.2-1.2); Calc. Creatinine Clearance 0 mL/min (70-130); Calcium 8.6 mg/dL (7.8-10.44); Carbon Dioxide 24 mmol/L (22-29); Chloride 108 mmol/L (98-107); Estimated GFR-MDRD 72; Globulin 2.2 g/dL (2.4-3.5); Glucose 91 mg/dL (70-105); Lipase 45 U/L (8-78); Potassium 4.1 mmol/L (3.5-5.1); Sodium 140 mmol/L (136-145)
[2019-03-01] MEDS ORDERED: HYDROcodone/Acetaminophen 5/325 mg Tablet ONE (01:25)
[2019-03-01 01:39] LABS: Clarity Clear (Clear); Specific Gravity, Urine 1.025 (1.005-1.030); pH, Urine 6.5 (5.0-9.0)
[2019-03-01 01:40] LABS: Bilirubin Negative (Negative); Blood, Urine Negative (Negative); Glucose, Urine (Dipstick) Negative (Negative); Leukocyte Negative (Negative); Nitrite Negative (Negative); Pregnancy Test - Urine (BHCG) Negative (Negative); Protein, Urine (Dipstick) Negative (Neg-Trace); Urobilinogen 0.2 mg/dL (0.2-1.0)
[2019-03-01 01:41] LABS: Pregu Control Background? CLEAR/WHITE (CLR/WHITE); Pregu Control Bar Appear? YES (CONTROL BAR); Specific Gravity 1.025 (1.002-1.036)
== END 2019-03-01 02:23 | disposition home or self-care (01) ==
LOC: ERS 21:36
DX: R10.9 Unspecified abdominal pain (principal); R10.814 Left lower quadrant abdominal tenderness; R10.813 Right lower quadrant abdominal tenderness; G43.909 Migraine, unspecified, not intractable, without status migrainosus
CPT/HCPCS: 36415; 80053; 81003; 81025; 83690; 85025; 99284

== ENCOUNTER 2019-05-22 07:48 | Emergency (ER) | payer OTHER ==
[2019-05-22] MEDS ORDERED: Acetaminophen 500 MG TAB ONE (09:01)
[2019-05-22] MEDS ORDERED: Sulfameth/Trimethoprim DS 800-160mg TAB ONE (09:01)
== END 2019-05-22 09:15 | disposition home or self-care (01) ==
LOC: ERS 07:48
DX: L03.011 Cellulitis of right finger (principal); G43.909 Migraine, unspecified, not intractable, without status migrainosus; J45.909 Unspecified asthma, uncomplicated
CPT/HCPCS: 99283

== ENCOUNTER 2020-03-28 19:42 | Emergency (ER) | payer OTHER ==
--- NOTE | 2020-03-28 20:28 | RAD ---
RIGHT HAND RADIOGRAPHS THREE VIEWS: 03/28/20 PROVIDED CLINICAL HISTORY: Right hand pain. FINDINGS: There is no evidence for fracture or other acute osseous abnormality. If there is persistent clinical concern, conservative management and follow-up imaging are advised. IMPRESSION: As above. POS: [facility]
== END 2020-03-28 20:50 | disposition home or self-care (01) ==
LOC: ERS 19:42
DX: M79.641 Pain in right hand (principal); G43.909 Migraine, unspecified, not intractable, without status migrainosus; J45.909 Unspecified asthma, uncomplicated

== ENCOUNTER 2020-08-14 10:14 | Emergency (ER) | payer OTHER ==
[2020-08-14 10:43] LABS: #Basophils 0.1 thou/uL (0.0-0.2); #Eosinphils 0.2 thou/uL (0.0-0.7); #Monocytes 0.4 thou/uL (0.11-0.59); #Neutrophils 2.4 thou/uL (1.40-6.50); %Basophils 1.2 % (0.0-1.0); %Eosinophils 4.7 % (0.0-10.0); %Lymphocytes 39.6 % (21.0-51.0); %Monocytes 8.1 % (0.0-10.0); %Neutrophils 46.4 % (42.0-75.0); Hemoglobin 12.7 g/dL (12.0-16.0); Mean Corpuscular HGB CONC 33.3 g/dL (32.0-36.0); Mean Corpuscular Hemoglobin 28.3 pg (27.0-31.0); Mean Corpuscular Volume 85.1 fL (78.0-98.0); Platelet Count 264 thou/uL (130-400); RBC Distribution Width 13.1 % (11.5-14.5); Red Blood Cell (RBC) Count 4.48 mill/uL (4.20-5.40); White Blood Cell (WBC) Count 5.2 thou/uL (4.8-10.8)
[2020-08-14 10:47] LABS: BHCG - Serum Negative (NEGATIVE); Pregs Control Background? CLEAR/WHITE (CLR/WHITE); Pregs Control Bar Appear? YES (CONTROL BAR)
--- NOTE | 2020-08-14 11:06 | RAD ---
RADIOGRAPH CHEST 1 VIEW: DATE: 08/14/2020 HISTORY: 35-year-old female with chest pain FINDINGS: The visualized lung ventura are clear. The cardiomediastinal silhouette and hilar shadows are normal. The lateral costophrenic angles are sharp. The osseous structures appear normal. There is no pneumothorax. IMPRESSION: Negative.
[2020-08-14] MEDS ORDERED: Ketorolac Tromethamine 30 MG/ML VIAL ONE (11:21)
[2020-08-14 11:23] LABS: ALT (SGPT) 13 U/L (8-55); AST (SGOT) 19 U/L (5-34); Alkaline Phosphatase 61 U/L (40-110); Anion Gap 13 mmol/L (10-20); BUN (Urea Nitrogen) 11 mg/dL (7.0-18.7); Bilirubin, Total 0.3 mg/dL (0.2-1.2); Calc. Creatinine Clearance 0 mL/min (70-130); Calcium 8.9 mg/dL (7.8-10.44); Carbon Dioxide 23 mmol/L (22-29); Chloride 110 mmol/L (98-107); Estimated GFR-MDRD 87; Globulin 2.8 g/dL (2.4-3.5); Glucose 74 mg/dL (70-105); Potassium 3.9 mmol/L (3.5-5.1); Protein, Total 6.8 g/dL (6.0-8.3); Sodium 142 mmol/L (136-145)
--- NOTE | 2020-08-16 13:14 | EKG ---
Test Reason : Blood Pressure : / mmHG Vent. Rate : 068 BPM Atrial Rate : 068 BPM P-R Int : 138 ms QRS Dur : 076 ms QT Int : 386 ms P-R-T Axes : 068 080 057 degrees QTc Int : 410 ms Normal sinus rhythm Normal ECG Confirmed by ADILENE RIVERA DO ([id number]), offline editor BIRGIT MERCEDES ([id number]) on 08/16/2020 1:14:20 PM Referred By: Confirmed By:ADILENE RIVERA DO
== END 2020-08-14 11:40 | disposition home or self-care (01) ==
LOC: ERS 10:14
DX: R07.89 Other chest pain (principal); J45.909 Unspecified asthma, uncomplicated
CPT/HCPCS: 71045; 80053; 84484; 84703; 85025; 85379; 93005; 96374; J1885

== ENCOUNTER 2020-08-15 08:08 | Emergency (ER) | payer OTHER ==
[2020-08-15 09:12] LABS: #Basophils 0.1 thou/uL (0.0-0.2); #Eosinphils 0.2 thou/uL (0.0-0.7); #Monocytes 0.3 thou/uL (0.11-0.59); #Neutrophils 2.5 thou/uL (1.40-6.50); %Basophils 1.2 % (0.0-1.0); %Eosinophils 3.4 % (0.0-10.0); %Lymphocytes 39.5 % (21.0-51.0); %Monocytes 6.8 % (0.0-10.0); %Neutrophils 49.2 % (42.0-75.0); Hemoglobin 12.2 g/dL (12.0-16.0); Mean Corpuscular HGB CONC 32.5 g/dL (32.0-36.0); Mean Corpuscular Hemoglobin 27.6 pg (27.0-31.0); Mean Corpuscular Volume 85.1 fL (78.0-98.0); Mean Platelet Volume 8.5 fL (7.4-10.4); Platelet Count 248 thou/uL (130-400); RBC Distribution Width 12.9 % (11.5-14.5)
[2020-08-15 09:28] LABS: ALT (SGPT) 10 U/L (8-55); AST (SGOT) 19 U/L (5-34); Albumin 4.1 g/dL (3.5-5.0); Alkaline Phosphatase 61 U/L (40-110); Anion Gap 12 mmol/L (10-20); BUN (Urea Nitrogen) 12 mg/dL (7.0-18.7); Bilirubin, Total 0.2 mg/dL (0.2-1.2); Calc. Creatinine Clearance 0 mL/min (70-130); Calcium 8.6 mg/dL (7.8-10.44); Carbon Dioxide 22 mmol/L (22-29); Chloride 109 mmol/L (98-107); Estimated GFR-MDRD 87; Globulin 2.8 g/dL (2.4-3.5); Glucose 89 mg/dL (70-105); Protein, Total 6.9 g/dL (6.0-8.3); Sodium 139 mmol/L (136-145)
[2020-08-15 09:35] LABS: Bilirubin Negative (Negative); Blood, Urine Large (Negative); Glucose, Urine (Dipstick) Negative (Negative); Ketone, Urine Negative (Negative); Leukocyte Negative (Negative); Nitrite Negative (Negative); Protein, Urine (Dipstick) Negative (Neg-Trace); Urobilinogen 0.2 mg/dL (Less than 2); pH, Urine 5.5 (5.0-9.0)
[2020-08-15 09:39] LABS: Clarity Hazy (Clear)
[2020-08-15 09:42] LABS: Pregnancy Test - Urine (BHCG) Negative (Negative); Pregu Control Background? CLEAR/WHITE (CLR/WHITE); Pregu Control Bar Appear? YES (CONTROL BAR); Specific Gravity 1.023 (1.002-1.036); Specific Gravity, Urine 1.023 (1.005-1.030)
[2020-08-15 09:45] LABS: WBC/HPF None Seen HPF (0-3)
--- NOTE | 2020-08-15 11:44 | CT ---
CT ANGIO OF CHEST PERFORMED WITH INTRAVENOUS CONTRAST ENHANCEMENT WITH 3D RECONSTRUCTIONS: History: Chest pain. FINDINGS: The lungs are clear of any infiltrative process. No pulmonary nodules or pleural effusions. There is no significant mediastinal or hilar adenopathy. The thoracic aorta is normal in caliber. The re is fair pulmonary artery opacification. Smaller peripheral emboli would be difficult to exclude bu t I see no evidence for embolus. Visualized liver parenchyma shows no focal findings. There are what appear to be some small gallstone s incidentally seen. Review of osseous structures show no signs of any significant findings. IMPRESSION: 1. No CT evidence for pulmonary embolus. 2. Small gallstones. POS: [facility]
[2020-08-15] MEDS ORDERED: Iopamidol-370 76% 500 ML 1 ML ONE (13:58)
== END 2020-08-15 11:39 | disposition home or self-care (01) ==
LOC: ERS 08:08
DX: R07.89 Other chest pain (principal); K80.20 Calculus of gallbladder without cholecystitis without obstruction; R06.00 Dyspnea, unspecified; G43.909 Migraine, unspecified, not intractable, without status migrainosus; J45.909 Unspecified asthma, uncomplicated
CPT/HCPCS: 71275; 80053; 81003; 81015; 81025; 84484; 85025; 93005; Q9967

== ENCOUNTER 2020-09-03 08:26 | Emergency (ER) | payer OTHER ==
[2020-09-03] MEDS ORDERED: Ketorolac Tromethamine 30 MG/ML VIAL ONE (08:57)
[2020-09-03] MEDS ORDERED: diphenhydrAMINE 50 MG/ML VIAL ONE (08:57)
[2020-09-03] MEDS ORDERED: Metoclopramide HCl 10 MG/2 ML VIAL ONE (08:57)
[2020-09-03] MEDS ORDERED: methylPREDNISolone Sod Succ/PF 125 MG/2 ML VIAL ONE (08:57)
--- NOTE | 2020-09-03 09:09 | CT ---
CT BRAIN WITHOUT CONTRAST: HISTORY: Headache, syncope, right-sided numbness COMPARISON: 10/18/2015 FINDINGS: No evidence of acute infarct, hemorrhage, midline shift or abnormal extra-axial fluid collections is seen. The ventricular size is appropriate and the basilar cisterns are patent. The bony calvarium is intact. The visualized paranasal sinuses and mastoid air cells are well aerated. IMPRESSION: No CT evidence of acute intracranial process.
[2020-09-03 09:13] LABS: #Basophils 0.1 thou/uL (0.0-0.2); #Eosinphils 0.1 thou/uL (0.0-0.7); #Monocytes 0.5 thou/uL (0.11-0.59); #Neutrophils 4.4 thou/uL (1.40-6.50); %Basophils 1.3 % (0.0-1.0); %Eosinophils 1.7 % (0.0-10.0); %Monocytes 7.1 % (0.0-10.0); %Neutrophils 61.9 % (42.0-75.0); Hemoglobin 12.9 g/dL (12.0-16.0); Mean Corpuscular HGB CONC 32.3 g/dL (32.0-36.0); Mean Corpuscular Hemoglobin 27.4 pg (27.0-31.0); Mean Platelet Volume 8.2 fL (7.4-10.4); Platelet Count 264 thou/uL (130-400); RBC Distribution Width 12.8 % (11.5-14.5); White Blood Cell (WBC) Count 7.1 thou/uL (4.8-10.8)
[2020-09-03 09:28] LABS: ALT (SGPT) 13 U/L (8-55); AST (SGOT) 21 U/L (5-34); Albumin 4.3 g/dL (3.5-5.0); Alkaline Phosphatase 65 U/L (40-110); Anion Gap 17 mmol/L (10-20); BUN (Urea Nitrogen) 13 mg/dL (7.0-18.7); Bilirubin, Total 0.4 mg/dL (0.2-1.2); Calc. Creatinine Clearance 0 mL/min (70-130); Calcium 8.9 mg/dL (7.8-10.44); Carbon Dioxide 21 mmol/L (22-29); Chloride 105 mmol/L (98-107); Estimated GFR-MDRD 82; Globulin 3.1 g/dL (2.4-3.5); Glucose 89 mg/dL (70-105); Potassium 3.8 mmol/L (3.5-5.1); Protein, Total 7.4 g/dL (6.0-8.3); Sodium 139 mmol/L (136-145)
[2020-09-03 09:40] LABS: BHCG - Serum Negative (NEGATIVE); Pregs Control Background? CLEAR/WHITE (CLR/WHITE); Pregs Control Bar Appear? YES (CONTROL BAR)
== END 2020-09-03 10:54 | disposition home or self-care (01) ==
LOC: ERS 08:26
DX: R55 Syncope and collapse (principal); R51.9 Headache, unspecified; J45.909 Unspecified asthma, uncomplicated
CPT/HCPCS: 70450; 80053; 84484; 84703; 85025; 93005; 96365; 96366; 96375; J1200; J1885; J2765; J2930

== ENCOUNTER 2021-05-08 18:10 | Emergency (ER) | payer BC, OTHER ==
[2021-05-08 19:25] LABS: #Basophils 0.1 thou/uL (0.0-0.2); #Eosinphils 0.2 thou/uL (0.0-0.7); #Lymphocytes 2.6 thou/uL (1.20-3.40); #Monocytes 0.6 thou/uL (0.11-0.59); #Neutrophils 4.2 thou/uL (1.40-6.50); %Eosinophils 2.3 % (0.0-10.0); %Lymphocytes 34.3 % (21.0-51.0); %Monocytes 7.7 % (0.0-10.0); %Neutrophils 54.7 % (42.0-75.0); Hemoglobin 12.6 g/dL (12.0-16.0); Mean Corpuscular HGB CONC 33.9 g/dL (32.0-36.0); Mean Corpuscular Volume 88.5 fL (78.0-98.0); Mean Platelet Volume 8.2 fL (7.4-10.4); Platelet Count 280 thou/uL (130-400); RBC Distribution Width 13.3 % (11.5-14.5); Red Blood Cell (RBC) Count 4.21 mill/uL (4.20-5.40); White Blood Cell (WBC) Count 7.7 thou/uL (4.8-10.8)
[2021-05-08 19:29] LABS: BHCG - Serum Negative (NEGATIVE); Pregs Control Background? CLEAR/WHITE (CLR/WHITE); Pregs Control Bar Appear? YES (CONTROL BAR)
[2021-05-08 19:36] LABS: ALT (SGPT) Less than 7 U/L (8-55); AST (SGOT) 16 U/L (5-34); Alkaline Phosphatase 60 U/L (40-110); Anion Gap 10 mmol/L (10-20); BUN (Urea Nitrogen) 11 mg/dL (7.0-18.7); Bilirubin, Total 0.5 mg/dL (0.2-1.2); Calc. Creatinine Clearance 0 mL/min (70-130); Calcium 9.4 mg/dL (7.8-10.44); Carbon Dioxide 26 mmol/L (22-29); Chloride 106 mmol/L (98-107); Globulin 2.9 g/dL (2.4-3.5); Glucose 87 mg/dL (70-105); Lipase 43 U/L (8-78); Potassium 4.1 mmol/L (3.5-5.1); Protein, Total 6.9 g/dL (6.0-8.3); Sodium 138 mmol/L (136-145)
[2021-05-08] MEDS ORDERED: Mag-Al 1200 mg/1200 mg/30 ML UDCUP ONE (20:03)
[2021-05-08] MEDS ORDERED: Lidocaine Viscous Sol 2% 15 ml UD Cup ONE (20:03)
[2021-05-08] MEDS ORDERED: HYDROcodone/Acetaminophen 10/325 mg Tablet ONE (20:03)
== END 2021-05-08 20:45 | disposition home or self-care (01) ==
LOC: ERS 18:10
DX: R10.13 Epigastric pain (principal); G43.909 Migraine, unspecified, not intractable, without status migrainosus; J45.909 Unspecified asthma, uncomplicated
CPT/HCPCS: 36415; 80053; 83690; 84703; 85025; 99284

== ENCOUNTER 2021-06-22 17:10 | Emergency (ER) | payer OTHER | END 2021-06-22 21:23 | disposition left against medical advice (07) | LOC: ERS 17:10 | DX: Z53.21 Procedure and treatment not carried out due to patient leaving prior to being seen by health care provider (principal) ==

== ENCOUNTER 2021-07-26 04:21 | Emergency (ER) | payer OTHER ==
[2021-07-26] MEDS ORDERED: Ketorolac Tromethamine 30 MG/ML VIAL ONE (06:09)
== END 2021-07-26 06:28 | disposition home or self-care (01) ==
LOC: ERS 04:21
DX: M25.521 Pain in right elbow (principal); M25.511 Pain in right shoulder
CPT/HCPCS: 96372; J1885

== ENCOUNTER 2021-08-08 08:35 | Emergency (ER) | payer OTHER | END 2021-08-08 09:23 | disposition home or self-care (01) | LOC: ERS 08:35 | DX: R10.84 Generalized abdominal pain (principal); R19.7 Diarrhea, unspecified; J45.909 Unspecified asthma, uncomplicated | CPT/HCPCS: 99283 ==

== ENCOUNTER 2021-08-24 21:33 | Emergency (ER) | payer OTHER ==
[2021-08-24 23:40] LABS: #Basophils 0.1 thou/uL (0.0-0.2); #Eosinphils 0.5 thou/uL (0.0-0.7); #Lymphocytes 2.1 thou/uL (1.20-3.40); #Monocytes 0.8 thou/uL (0.11-0.59); #Neutrophils 8.5 thou/uL (1.40-6.50); %Basophils 0.6 % (0.0-1.0); %Eosinophils 4.4 % (0.0-10.0); %Lymphocytes 17.4 % (21.0-51.0); %Neutrophils 70.7 % (42.0-75.0); Hemoglobin 12.3 g/dL (12.0-16.0); Mean Corpuscular HGB CONC 31.7 g/dL (32.0-36.0); Mean Corpuscular Volume 82.2 fL (78.0-98.0); Mean Platelet Volume 7.3 fL (7.4-10.4); Platelet Count 371 thou/uL (130-400); RBC Distribution Width 13.9 % (11.5-14.5); Red Blood Cell (RBC) Count 4.73 mill/uL (4.20-5.40)
[2021-08-24 23:56] LABS: ALT (SGPT) 7 U/L (8-55); AST (SGOT) 14 U/L (5-34); Albumin 4.2 g/dL (3.5-5.0); Alkaline Phosphatase 75 U/L (40-110); Anion Gap 15 mmol/L (10-20); BUN (Urea Nitrogen) 10 mg/dL (7.0-18.7); Bilirubin, Total 0.4 mg/dL (0.2-1.2); Calc. Creatinine Clearance 0 mL/min (70-130); Calcium 9.4 mg/dL (7.8-10.44); Carbon Dioxide 23 mmol/L (22-29); Chloride 105 mmol/L (98-107); Glucose 92 mg/dL (70-105); Lipase 44 U/L (8-78); Protein, Total 7.2 g/dL (6.0-8.3); Sodium 139 mmol/L (136-145)
[2021-08-25 01:03] LABS: Bilirubin Negative (Negative); Blood, Urine Negative (Negative); Clarity Clear (Clear); Glucose, Urine (Dipstick) Normal (Negative); Ketone, Urine 10 mg/dL (Negative); Leukocyte Negative Leu/uL (Negative); Nitrite Negative (Negative); Protein, Urine (Dipstick) Negative (Neg-Trace); Specific Gravity, Urine 1.006 (1.002-1.036); Urobilinogen Normal mg/dL (Less than 2); pH, Urine 5.5 (5.0-9.0)
[2021-08-25 01:11] LABS: Pregnancy Test - Urine (BHCG) Negative (Negative); Pregu Control Background? CLEAR/WHITE (CLR/WHITE); Pregu Control Bar Appear? YES (CONTROL BAR); Specific Gravity 1.006 (1.002-1.036)
== END 2021-08-25 01:37 | disposition home or self-care (01) ==
LOC: ERS 21:33
DX: R19.7 Diarrhea, unspecified (principal); R10.11 Right upper quadrant pain; J45.909 Unspecified asthma, uncomplicated
CPT/HCPCS: 80053; 81003; 81025; 83690; 85025; 96372; 99284; J0500

== ENCOUNTER 2021-10-24 12:53 | Emergency (ER) | payer BC ==
[2021-10-24 18:41] LABS: SARS-CoV-2 PCR by NAA Not Detected (NotDetected)
== END 2021-10-24 17:15 | disposition home or self-care (01) ==
LOC: ERS 12:53
DX: J45.901 Unspecified asthma with (acute) exacerbation (principal); Z20.822 Contact with and (suspected) exposure to COVID-19; R53.81 Other malaise
CPT/HCPCS: 87081; 87430; 99284; U0003; U0005

== ENCOUNTER 2021-11-03 07:26 | Emergency (ER) | payer BC, OTHER ==
[2021-11-03] MEDS ORDERED: Ketorolac Tromethamine 30 MG/ML VIAL ONE (08:15)
== END 2021-11-03 08:46 | disposition home or self-care (01) ==
LOC: ERS 07:26
DX: K04.01 Reversible pulpitis (principal); K02.9 Dental caries, unspecified; J45.909 Unspecified asthma, uncomplicated
CPT/HCPCS: 96372; 99283; J1885

== ENCOUNTER 2022-04-29 12:10 | Emergency (ER) | payer BC, OTHER, SELFPAY ==
[~2022-04-29 12:10] MED LIST: ISOVUE-370 76%-LOCM 1 ML ONE
[2022-04-29 12:39] LABS: #Basophils 0.1 thou/uL (0.0-0.2); #Eosinphils 0.2 thou/uL (0.0-0.7); #Lymphocytes 1.7 thou/uL (1.20-3.40); #Monocytes 0.4 thou/uL (0.11-0.59); #Neutrophils 3.8 thou/uL (1.40-6.50); %Basophils 0.8 % (0.0-1.0); %Eosinophils 2.7 % (0.0-10.0); %Lymphocytes 27.9 % (21.0-51.0); %Monocytes 6.9 % (0.0-10.0); %Neutrophils 61.6 % (42.0-75.0); Hemoglobin 13.2 g/dL (12.0-16.0); Mean Corpuscular HGB CONC 32.6 g/dL (32.0-36.0); Mean Corpuscular Hemoglobin 29.5 pg (27.0-31.0); Mean Corpuscular Volume 90.4 fL (78.0-98.0); Mean Platelet Volume 8.2 fL (7.4-10.4); Platelet Count 231 thou/uL (130-400); RBC Distribution Width 13.2 % (11.5-14.5); Red Blood Cell (RBC) Count 4.49 mill/uL (4.20-5.40); White Blood Cell (WBC) Count 6.2 thou/uL (4.8-10.8)
[2022-04-29 13:02] LABS: ALT (SGPT) 8 U/L (8-55); AST (SGOT) 15 U/L (5-34); Albumin 4.2 g/dL (3.5-5.0); Alkaline Phosphatase 61 U/L (40-110); Anion Gap 14 mmol/L (10-20); BUN (Urea Nitrogen) 12 mg/dL (7.0-18.7); Bilirubin, Total 0.5 mg/dL (0.2-1.2); Calc. Creatinine Clearance 0 mL/min (70-130); Calcium 9.1 mg/dL (7.8-10.44); Carbon Dioxide 21 mmol/L (22-29); Chloride 108 mmol/L (98-107); Estimated GFR 79; Globulin 2.8 g/dL (2.4-3.5); Glucose 68 mg/dL (70-105); Potassium 3.9 mmol/L (3.5-5.1); Sodium 139 mmol/L (136-145)
[2022-04-29 13:37] LABS: Bilirubin Negative (Negative); Blood, Urine Negative (Negative); Clarity Clear (Clear); Glucose, Urine (Dipstick) Normal (Negative); Ketone, Urine Trace mg/dL (Negative); Leukocyte Negative Leu/uL (Negative); Nitrite Negative (Negative); Protein, Urine (Dipstick) 10 mg/dL (Neg-Trace); Specific Gravity, Urine 1.034 (1.002-1.036); Urobilinogen Normal mg/dL (Less than 2); pH, Urine 5.5 (5.0-9.0)
[2022-04-29 13:48] LABS: BHCG - Serum Negative (NEGATIVE); Pregs Control Background? CLEAR/WHITE (CLR/WHITE); Pregs Control Bar Appear? YES (CONTROL BAR)
[2022-04-29] MEDS ORDERED: Ketorolac Tromethamine 30 MG/ML VIAL ONE (13:52)
== END 2022-04-29 15:57 | disposition home or self-care (01) ==
LOC: ERS 12:10
DX: R07.9 Chest pain, unspecified (principal); R06.02 Shortness of breath; J45.909 Unspecified asthma, uncomplicated; Z79.899 Other long term (current) drug therapy
CPT/HCPCS: 36415; 71045; 71275; 80053; 81003; 84484; 84703; 85025; 93005; 96374; J1885; Q9966

== ENCOUNTER 2022-11-21 08:26 | Emergency (ER) | payer OTHER ==
[2022-11-21 10:18] LABS: Bilirubin Unable to Interpret (Negative); Blood, Urine Unable to Interpret (Negative); Clarity Hazy (Clear); Glucose, Urine (Dipstick) Unable to Interpret mg/dL (Negative); Ketone, Urine Unable to Interpret mg/dL (Negative); Leukocyte Unable to Interpret Leu/uL (Negative); Nitrite Unable to Interpret (Negative); Protein, Urine (Dipstick) Unable to Interpret mg/dL (Neg-Trace); RBC/HPF 0-3 HPF (0-3); Specific Gravity, Urine 1.025 (1.002-1.036); Urobilinogen UNABLE TO INTERPRET mg/dL (Less than 2); WBC/HPF 21-50 HPF (0-3); pH, Urine 5.4 (5.0-9.0)
[2022-11-21 10:19] LABS: Bacteria/HPF 2+ HPF (None Seen)
[2022-11-21 11:09] LABS: Pregnancy Test - Urine (BHCG) Negative (Negative); Pregu Control Background? CLEAR/WHITE (CLR/WHITE); Pregu Control Bar Appear? YES (CONTROL BAR); Specific Gravity 1.025 (1.002-1.036)
== END 2022-11-21 10:51 | disposition home or self-care (01) ==
LOC: ERS 08:26
DX: N39.0 Urinary tract infection, site not specified (principal)
CPT/HCPCS: 81003; 81015; 81025; 87077; 87086; 87186; 99284

== ENCOUNTER 2023-10-29 02:40 | Emergency (ER) | payer OTHER ==
[2023-10-29 03:35] LABS: Bacteria/HPF None Seen HPF (None Seen); Bilirubin Negative (Negative); Blood, Urine Negative (Negative); CAUTI Indications for Culture Pelvic or flank pain; Clarity Clear (Clear); Glucose, Urine (Dipstick) Normal (Negative); Ketone, Urine Negative (Negative); Leukocyte 500 Leu/uL (Negative); Nitrite Negative (Negative); Protein, Urine (Dipstick) Negative (Neg-Trace); RBC/HPF 0-3 HPF (0-3); Specific Gravity, Urine 1.022 (1.002-1.036); Squamous Epithelial 0-3 HPF (0-3); Urobilinogen Normal mg/dL (Less than 2); pH, Urine 5.5 (5.0-9.0)
[2023-10-29 03:38] LABS: Urine Culture Reflex No No
[2023-10-29 04:10] LABS: BHCG - Serum Negative (NEGATIVE); Pregs Control Background? CLEAR/WHITE (CLR/WHITE); Pregs Control Bar Appear? YES (CONTROL BAR)
[2023-10-29] MEDS ORDERED: Lidocaine 1% MPF 2 ML VIAL ONE (04:16)
[2023-10-29] MEDS ORDERED: cefTRIAXone (ROCEPHIN) 500 MG VIAL ONE (04:16)
[2023-10-29] MEDS ORDERED: diphenhydrAMINE 50 MG CAP ONE (04:16)
[2023-10-29 16:28] LABS: Chlamydia by PCR, Vaginal Swab Not Detected (NotDetected); GC by PCR, Vaginal Swab Not Detected (NotDetected)
== END 2023-10-29 05:25 | disposition home or self-care (01) ==
LOC: ERS 02:40
DX: N39.0 Urinary tract infection, site not specified (principal)
CPT/HCPCS: 36415; 81001; 84703; 87480; 87491; 87510; 87591; 87660; 96372; 99283; J0696